=== PATIENT | female | born 1995 | race Two or more races ===

== ENCOUNTER → 2020-04-23 | Outpatient (CLI) | payer OTHER ==
[~2020-04-23] MED LIST: lexapro PO
== END | disposition home or self-care (01) ==
LOC: STAR 13:03
PROVIDERS: ATTEND Anesthesiology
DX: Z20.828 Contact with and (suspected) exposure to other viral communicable diseases (principal)
CPT/HCPCS: 36415; 87635

== ENCOUNTER 2020-04-27 06:19 | Day surgery (SDC) | payer OTHER ==
[~2020-04-27] VITALS: Ht 152.4 cm; Wt 58.7 kg
[2020-04-27] MEDS ORDERED: LACTATED RINGERS 1,000 ML IV SCH (06:50)
[2020-04-27] MEDS ORDERED: lexapro PO (06:52)
[2020-04-27] MEDS ORDERED: MIDAZOLAM 1 MG/ML, 2ML ONE (06:59)
[2020-04-27] MEDS ORDERED: FENTANYL PF 100 MCG/2ML ONE ×2 (06:59→08:59)
[2020-04-27] MEDS ORDERED: PROPOFOL 10 MG/ML, 20ML ONE (07:00)
[2020-04-27] MEDS ORDERED: NEOSTIGMINE 1 MG/ML, 10ML ONE (07:00)
[2020-04-27] MEDS ORDERED: CEFAZOLIN 1,000 MG ONE (07:00)
[2020-04-27] MEDS ORDERED: LIDOCAINE-MPF 1%, 2ML INFIL ONE (07:00)
[2020-04-27] MEDS ORDERED: ROCURONIUM 10MG/ML,5ML ONE (07:00)
[2020-04-27] MEDS ORDERED: CHLORHEXIDINE 15 ML UDC MM ONE (07:00)
[2020-04-27] MEDS ORDERED: DEXAMETHASONE 4 MG/ML, 1ML ONE (07:00)
[2020-04-27] MEDS ORDERED: GLYCOPYRROLATE 0.2MG/1ML, 5ML ONE (07:00)
[2020-04-27] MEDS ORDERED: ONDANSETRON 2MG/ML, 2ML ONE (07:00)
[2020-04-27] MEDS ORDERED: SUCCINYLCHOLINE 20 MG/ML, 10ML ONE (07:00)
[2020-04-27 07:01] LABS: HCG UR SG 1.036 (1.003-1.030)
[2020-04-27] MEDS ORDERED: OXYMETAZOLINE NASAL SPRAY 0.05%, 15ML ONE (07:02)
[2020-04-27 07:08] VITALS: BP 121/83
[2020-04-27] MEDS ORDERED: OXYcodone 5 MG/5 ML ORAL.SOL UDC PO PRN (07:30)
[2020-04-27] MEDS ORDERED: HYDROmorphone 1 MG/ML, 1ML INJ IVPush PRN (07:30)
[2020-04-27] MEDS ORDERED: HYDROcodone/APAP 7.5-325MG/15ML UDC PO PRN (07:30)
[2020-04-27] MEDS ORDERED: MEPERIDINE/PF 25MG/0.5ML IVPush PRN (07:30)
[2020-04-27] MEDS ORDERED: PROMETHAZINE 25 MG/ML, 1ML IVPush PRN (07:30)
[2020-04-27] MEDS: FENTANYL PF 100 MCG/2ML IV PRN ×2 (09:01→09:09)
[2020-04-27] MEDS ORDERED: OXYcodone 5 MG/5 ML ORAL.SOL UDC ONE (09:04)
== END 2020-04-27 10:40 | disposition home or self-care (01) ==
LOC: OUT 06:19
PROVIDERS: ATTEND Otolaryngology
DX: J03.91 Acute recurrent tonsillitis, unspecified (principal); J35.01 Chronic tonsillitis; J35.8 Other chronic diseases of tonsils and adenoids; F32.9 Major depressive disorder, single episode, unspecified; F41.9 Anxiety disorder, unspecified; Z83.3 Family history of diabetes mellitus
CPT/HCPCS: 42821; 81025; 88305; J0330; J0690; J1100; J2250; J2405; J2704; J2710; J3010; J7120

== ENCOUNTER 2020-12-17 00:47 | Emergency (ER) | payer OTHER ==
[~2020-12-17] VITALS: Ht 152.4 cm; Wt 59.6 kg
--- NOTE | 2020-12-17 01:16 | NUR ---
ASSUMED CARE OF PATIENT. PATIENT REPORTS SHE IS FEELING ANXIOUS BETWEEN SCHOOL AND QUITTING HER JOB YESTERDAY. PT CRYING IN ROOM. PT DENIES SI, HI. VS STABLE. CALL LIGHT IN PLACE. WILL CONTINUE TO MONITOR. SONIA GARCIA IN ROOM
[2020-12-17] MEDS ORDERED: LORazepam 1MG TABLET ONE (01:20)
[2020-12-17] MEDS ORDERED: ONDANSETRON ODT 4 MG ONE (01:27)
[2020-12-17] MEDS ORDERED: LORazepam 1MG TABLET PO ONE (01:30)
[2020-12-17] MEDS ORDERED: ONDANSETRON ODT 4 MG PO ONE (01:30)
--- NOTE | 2020-12-17 01:40 | NUR ---
REPORT FROM WAGNER MEIER, PT CARE TRANSFERRED AT THIS TIME. PT NAD, RESTING ON GURNEY, APPEARS COMFORTABLE. WCTM
--- NOTE | 2020-12-17 01:49 | NUR ---
REPORT GIVEN TO HARDEEP WOLFE
[2020-12-17 02:32] VITALS: BP 115/70
--- NOTE | 2020-12-17 02:39 | NUR ---
Patient given discharge instructions and they have confirmed that they understand the instructions. Patient ambulatory with steady gait. NAD, DENIES ADDITIONAL QUESTIONS OR NEEDS, NO PERSONAL BELONGINGS LEFT IN ROOM AFTER DC.
== END 2020-12-17 02:45 | disposition home or self-care (01) ==
LOC: ED 02:42
DX: F41.1 Generalized anxiety disorder (principal)
CPT/HCPCS: 99283; Q0162